=== PATIENT | female | born 1995 | race African-American/Black ===

== ENCOUNTER 2021-07-02 22:42 | Emergency (ER) | payer OTHER | END 2021-07-02 23:32 | disposition home or self-care (01) | LOC: NAV ERS 22:42 | DX: O20.0 Threatened abortion (principal); Z3A.01 Less than 8 weeks gestation of pregnancy | CPT/HCPCS: 99284 ==

== ENCOUNTER 2025-01-10 16:53 | Emergency (ER) | payer OTHER ==
[2025-01-10] MEDS ORDERED: Mag-Al Plus 1200/1200/120 MG (30 mL) UDCUP ONE (17:27)
[2025-01-10] MEDS ORDERED: Lidocaine Viscous Sol 2% 15 ml UD Cup ONE (17:27)
== END 2025-01-10 18:13 | disposition home or self-care (01) ==
LOC: NAV ERS 16:53
DX: T88.4XXA Failed or difficult intubation, initial encounter (principal); K21.9 Gastro-esophageal reflux disease without esophagitis; F17.290 Nicotine dependence, other tobacco product, uncomplicated; F17.210 Nicotine dependence, cigarettes, uncomplicated
CPT/HCPCS: 93005; 99284